=== PATIENT | male | born 1970 | race Caucasian/White ===

== ENCOUNTER 2021-07-10 08:00 | Outpatient (CLI) | payer OTHER ==
--- NOTE | 2021-07-10 09:49 | XRAY Report ---
PROCEDURE: Shoulder 3 View RT INDICATIONS: R SHOULDER PX TECHNIQUE: 3 views of the shoulder were acquired. COMPARISON: None. FINDINGS: Bones: No fractures or dislocations. Mild degenerative change at the glenohumeral and AC joints. No suspicious bony lesions. Visualized ribs appear intact. Soft tissues: No suspicious soft tissue calcifications. IMPRESSION: Mild right shoulder DJD. Reviewed by: Andrey León MD on 07/10/2021 9:48 AM PST Approved by: Andrey Lenó MD on 07/10/2021 9:48 AM PST Station ID: [id number]
--- NOTE | 2021-07-10 10:33 | XRAY Report ---
PROCEDURE: Thoracic Spine 3 View INDICATIONS: UPPER BACK PX TECHNIQUE: 3 views of the thoracic spine were acquired. COMPARISON: None. FINDINGS: Bones: No fractures or dislocations. No suspicious bony lesions. 12 pairs of ribs are noted, and a ppear intact where visualized. [id number] degenerative changes noted throughout the thoracic s pine. Soft tissues: No paravertebral stripe thickening. IMPRESSION: 1. Multilevel degenerative disc disease. 2. No fracture. No acute osseous lesion. If there is continued clinical concern for pathology, then M RI should be considered for further evaluation. Reviewed by: Aniyah Marmolejo MD, PhD on 07/10/2021 10:32 AM PST Approved by: Aniyah Marmolejo MD, PhD on 07/10/2021 10:32 AM PST Station ID: [id number]
== END 2021-07-10 23:59 | disposition home or self-care (01) ==
LOC: DI.N 08:00
PROVIDERS: ATTEND Family Medicine
DX: M51.34 Other intervertebral disc degeneration, thoracic region (principal); M19.011 Primary osteoarthritis, right shoulder